=== PATIENT | female | born 1980 | race African-American/Black ===

== ENCOUNTER → 2016-09-19 | Outpatient (CLI) | payer OTHER ==
[~2016-09-19] MED LIST: AZEL30SP NAE; GLC/500 PO; PRED50TA PO; PSEU30TA20 PO
--- NOTE | 2016-09-19 20:11 | DIAGNOSTIC IMAGING REPORT ---
LUMBAR SPINE MRI HISTORY: Pain. Radiculopathy. LOWER BACK Pain, sciatica TECHNIQUE: Multiplanar multisequence MRI of the lumbar spine was performed without the use of contrast. COMPARISON: None. FINDINGS: For the purpose of the report the L5-S1 disc space will be located on axial image 27 of 30. Normal signal characteristics of the vertebral bodies as well as intervertebral discs. L1-L2: No significant central canal or neural foraminal narrowing. L2-L3: No significant central canal or neural foraminal narrowing. L3-L4: No significant central canal or neural foraminal narrowing. L4-L5: No significant central canal or neural foraminal narrowing. L5-S1: No significant central canal or neural foraminal narrowing. IMPRESSION: Normal study Electronically signed by: Donald Shah M.D. 09/19/2016 8:10 PM Dictated Date/Time: 09/19/2016 8:09 PM
== END | disposition home or self-care (01) ==
LOC: C.MRI 19:30
PROVIDERS: ATTEND Internal Medicine
DX: M54.5 Low back pain (principal)

== ENCOUNTER 2016-10-18 02:35 | Emergency (ER) | payer OTHER ==
[~2016-10-18] VITALS: Ht 167.6 cm; Wt 122.1 kg
[2016-10-18 02:38] VITALS: TEMP 36.5; Ht 167.6 cm; Wt 122.1 kg
[2016-10-18] MEDS ORDERED: PSEUDOEPHEDRINE HCL 30 MG TAB PO STA (03:00)
[2016-10-18] MEDS ORDERED: KETOROLAC TROMETHAMINE 60 MG/2 ML VIAL IM STA (03:00)
[2016-10-18] MEDS ORDERED: PSEU30TA20 PO (03:13)
--- NOTE | 2016-10-18 04:30 | EMERGENCY ROOM VISIT NOTE ---
History First contact with patient: 03:00 Chief Complaint: HEADACHE Stated Complaint: HEADACHE,NAUSEA,CONGESTION,NECK ACHE,CHILLS History of Present Illness The patient is a 36 year old female who presents to the Emergency Room with complaints of sinus pain and congestion with postnasal drip and runny nose and headache for the past few days. Patient had recurrent sinus infections. No previous CT imaging of her sinuses. She has not seen an ENT doctor. Patient denies chest pain, dyspnea, neck stiffness, sore throat, fever, chills, productive cough, lightheadedness, dizziness, vision problems. Review of Systems See HPI for pertinent positives & negatives. A total of 10 systems reviewed and were otherwise negative. Past Medical/Surgical History PCO S Social History Smoking Status: Never Smoker Drug Use: none Marital Status: Housing Status: lives with family Occupation Status: [employer] student Current/Historical Medications Scheduled Azelastine Hcl-Fluticasone Pro (Dymista), 1 SPRY FERMÍN BID Metformin Hcl (Glucophage), 500 MG PO BID Scheduled PRN Pseudoephedrine (Sudafed), 30 MG PO TID PRN for CONGESTION Allergies Coded Allergies: Clarithromycin (Verified Allergy, Unknown, unsure, 10/18/16) Codeine (Verified Allergy, Unknown, THROAT ITCHY, 10/18/16) Penicillins (Verified Allergy, Unknown, lip swelling, 10/18/16) [place] (Verified Allergy, Unknown, throat feels like it is closing, ) Physical Exam Vital Signs Date Time Temp Pulse Resp B/P Pulse Ox O2 Delivery O2 Flow Rate FiO2 10/18/16 02:38 36.5 82 18 161/98 99 Room Air Physical Exam VITALS: Vitals are noted on the nurse's note and reviewed by myself. Vital signs stable. GENERAL: Pleasant female, in no acute distress, nondiaphoretic, well-developed well-nourished. SKIN: The skin was without rashes, erythema, edema, or bruising. There is no tenting of the skin. Capillary reflex less than 2 seconds. HEAD: Normocephalic atraumatic. EARS: External auditory canals clear, tympanic membranes pearly john without erythema or effusion bilaterally. EYES: Pupils equal round and reactive to light and accommodation. Conjunctivae without injection, sclerae without icterus. Extraocular movements intact. NOSE: Patent, turbinates without inflammation or discharge. Bilateral frontal sinus tenderness. MOUTH: Mucous membranes moist. Pharynx without erythema or exudate. Uvula midline. Airway patent. Tongue does not deviate. NECK: Supple without nuchal rigidity. No lymphadenopathy. No thyromegaly. Cervical spine is nontender. No JVD. HEART: Regular rate and rhythm without murmurs gallops or rubs. LUNGS: Clear to auscultation bilaterally without wheezes, rales or rhonchi. No dullness to percussion. No retractions or accessory muscle use. ABDOMEN: Positive bowel sounds x 4. Normal tympanic percussion. Soft, nontender, without masses or organomegaly. Cabral sign negative. No guarding or rebound tenderness. MUSCULOSKELETAL: No muscle atrophy, erythema, or edema noted. NEURO: Patient was alert and oriented to person place and time. Normal sensation to light and sharp touch. No focal neurological deficits. Medical Decision & Procedures Medications Administered Medications (Trade) Dose Ordered Sig/Micah Route Start Time Stop Time Status Last Admin Dose Admin Prednisone (PredniSONE TAB) 60 mg NOW STAT PO 10/18/16 03:00 10/18/16 03:02 DC 10/18/16 03:18 60 MG Pseudoephedrine HCl (Sudafed Tab) 60 mg NOW STAT PO 10/18/16 03:00 10/18/16 03:02 DC 10/18/16 03:18 60 MG Ketorolac Tromethamine (Toradol Inj) 60 mg NOW STAT IM 10/18/16 03:00 10/18/16 03:02 DC 10/18/16 03:17 60 MG ED Course Prior records/ancillary studies reviewed. Triage Nursing notes reviewed. The patient's history was concerning for sinus pain and congestion with headache. Differential diagnosis: Etiologies such as URI, migraine headache, meningitis, sinusitis, CO exposure, ICH, SAH, infection, tumor, headache, sinus thrombosis, arterial dissection, as well as others were entertained. Physical examination findings: As above. Non-focal. ER treatment provided: Sudafed, Toradol On reassessment the patient felt better. Diagnostics interpreted by me: Imaging studies: CT of the sinuses was negative for sinusitis This appears to be consistent with upper respiratory infection. Patient was neurovascularly and neurologically intact. No signs of meningitis. No signs of airway compromise. She is well-appearing. She was advised to take medicines as directed and to follow-up ENT for her recurrent sinus problems or here in the ER sooner for severe pain, neck stiffness, confusion, fevers, worsening signs or symptoms or as needed. By the evaluation outlined above emergent etiologies such as meningitis, CO exposure, ICH, SAH, infection, temporal arteritis, tumor, sinus thrombosis, arterial dissection, as well as others were deemed relatively unlikely. The pt informed about the findings as listed above. All questions were answered and pleased with the treatment. Return instructions were outlined and the patient was discharged in stable condition. Outpatient prescription management: Prednisone Referral: The patient was referred back to their primary care physician and ENT for follow -up in 2 to 3 days for a recheck of the current condition. Case reviewed with my attending Medical Decision As above Impression Primary Impression: Upper respiratory infection Additional Impression: Sinus headache Departure Information Dispostion Home / Self-Care Condition GOOD Referrals Geovanna Cunningham M.D. (PCP) Patient Instructions My [facility] Additional Instructions Prednisone 50mg: Once daily until the prescription is finished. It is best to take this earlier in the day as some patients note occasional difficulty falling asleep when taken in the late evening. Acetaminophen(Tylenol) may be used for fever or pain. Use 1000mg every six hours as needed. Avoid using more than 3000mg in a 24 hour period. (AND/OR) Ibuprofen(Motrin, Advil) may be used for fever or pain. Use 600mg every six hours as needed. Take with food. Avoid using more than 2400mg in a 24 hour period. Do not use 2400mg per day for more than three consecutive days without physician direction. Prolonged inappropriate use can lead to stomach upset or ulcers. Afrin nasal spray: 2-3 sprays to each nostril twice daily as needed for congestion. Do not use for more than 3-4 days because it can lead to worsening rebound congestion. Pseudoephedrine(Sudaphed): 30-60mg every 6 hours as needed for nasal congestion. Do not take this with other stimulant products or supplements. Rest and drink plenty of fluids. Controlling your fever with Tylenol and Ibuprofen as above will make you feel better. Wash your hands after nose blowing, sneezing, or coughing. Most germs are spread through contact, therefore improper hygiene may result in your close contacts and loved ones becoming ill just like you. Continue current medications. Return to the ER for severe headache, neck stiffness, chest pain, difficulty breathing, fevers, vomiting, worsening of your condition, or as needed. Follow up with your primary physician or ENT this week for a recheck of your current condition. Problem Qualifiers Primary Impression: Upper respiratory infection URI type: unspecified viral URI Qualified Codes: J06.9 - Acute upper respiratory infection, unspecified; B97.89 - Other viral agents as the cause of diseases classified elsewhere
[2016-10-18] MEDS ORDERED: PRED50TA PO (04:32)
[2016-10-18 04:45] VITALS: BP 169/88; PULSE 87; O2SAT 97
--- NOTE | 2016-10-18 06:46 | DIAGNOSTIC IMAGING REPORT ---
SINUS CT CT DOSE: 595.07 mGy.cm HISTORY: sinus pain, recurrent sinus infx TECHNIQUE: Multiaxial CT images of the paranasal sinuses were performed and reformatted in the coronal plane without the use of contrast. COMPARISON: None. FINDINGS: The frontal sinuses, ethmoid air cells, sphenoid sinuses, and bilateral maxillary antra are clear. The mastoid air cells are clear. The bilateral ostiomeatal units are patent. The nasal septum is essentially midline. The orbits are unremarkable. A left-sided carole bullosa. IMPRESSION: The paranasal sinuses and mastoid air cells are clear. Electronically signed by: Reyes Arevalo M.D. 10/18/2016 6:44 AM Dictated Date/Time: 10/18/2016 6:42 AM
[2017-05-29] MEDS ORDERED: GLC/500 PO (03:10)
[2017-05-29] MEDS ORDERED: AZEL30SP NAE (03:11)
== END 2016-10-18 04:47 | disposition home or self-care (01) ==
LOC: C.EDB 02:36
DX: J06.9 Acute upper respiratory infection, unspecified (principal); B97.89 Other viral agents as the cause of diseases classified elsewhere; R51 Headache

== ENCOUNTER → 2017-02-10 | Outpatient (CLI) | payer OTHER ==
[~2017-02-10] MED LIST changes: +LEVO-366 PO
--- NOTE | 2017-02-10 10:15 | DIAGNOSTIC IMAGING REPORT ---
CT OF THE SINUSES WITHOUT CONTRAST FUSION PROTOCOL CLINICAL HISTORY: Chronic sinusitis. COMPARISON STUDY: Sinus CT October 18, 2016. TECHNIQUE: Axial images of the sinuses were obtained without IV contrast according to Fusion protocol. Coronal reformats were viewed. FINDINGS: Visualized portions of the intracranial contents are unremarkable on this unenhanced exam. Mastoid air cells are clear. There is no fluid within the middle ears. Ossicles are intact. Orbits are unremarkable. There is a carole bullosa of the left middle turbinate. There is mild S-shaped deviation of the nasal septum with mild spur formation. No bony destruction is present. There are no air-fluid levels. Note is made of minimal mucosal thickening of the sinuses which narrows several drainage pathways, including the right ostiomeatal complex. IMPRESSION: 1. Minimal mucosal thickening of the sinuses which narrows several drainage pathways, including the right ostiomeatal complex. No CT evidence of acute sinusitis. 2. Carole bullosa of the left middle turbinate. Electronically signed by: Walter Montoya M.D. 02/10/2017 10:14 AM Dictated Date/Time: 02/10/2017 10:08 AM
== END | disposition home or self-care (01) ==
LOC: C.CTS 09:49
PROVIDERS: ATTEND Physician Assistant
DX: J32.9 Chronic sinusitis, unspecified (principal); J34.89 Other specified disorders of nose and nasal sinuses

== ENCOUNTER 2017-04-14 21:23 | Emergency (ER) | payer OTHER ==
[~2017-04-14] VITALS: Ht 167.6 cm; Wt 127.7 kg
[~2017-04-14 21:23] MED LIST changes: -LEVO-366 PO; -PRED50TA PO
[2017-04-14 21:31] VITALS: TEMP 36.6; Ht 167.6 cm; Wt 127.7 kg
[2017-04-14 22:00] VITALS: BP 165/100; PULSE 70; O2SAT 96
[2017-04-14] MEDS ORDERED: PRED50TA PO (22:05)
[2017-04-14] MEDS ORDERED: LEVO-366 PO (22:05)
[2017-04-14] MEDS ORDERED: LEVOFLOXACIN 250 MG TAB PO ONE (22:15)
--- NOTE | 2017-04-15 06:08 | EMERGENCY ROOM VISIT NOTE ---
History First contact with patient: 21:52 Chief Complaint: HEADACHE Stated Complaint: SINUS MARTIN,CONGESTION,NASAL PAIN,NECK PAIN History of Present Illness The patient is a 37 year old female who presents to the Emergency Room with complaints of sinus headache symptoms for the past 7 or 8 days. The patient states that she has a history of chronic allergies, and feels her symptoms may be related to that. She has been taking Benadryl without significant improvement of symptoms. She states that she recently flew home from [place], and this did exacerbate her symptoms. She primarily complains of pain in the left frontal and left maxillary sinus distribution. She does not have significant ear pain or sore throat symptoms. She does have some sinus drainage and sore throat symptoms. No cough or wheezing. She has not had a fever. She rates her discomfort a 5/10. Review of Systems More than 10 systems were reviewed and otherwise negative with the exception of history of present illness. Past Medical/Surgical History History of chronic allergies Family History No pertinent family history Social History Smoking Status: Never Smoker Drug Use: none Marital Status: Housing Status: lives with family Occupation Status: [employer] student Current/Historical Medications Scheduled Azelastine Hcl-Fluticasone Pro (Dymista), 1 SPRY FERMÍN BID Levofloxacin (Levaquin), 500 MG PO DAILY Metformin Hcl (Glucophage), 500 MG PO BID Prednisone (Prednisone), 50 MG PO DAILY Scheduled PRN Pseudoephedrine (Sudafed), 30 MG PO TID PRN for CONGESTION Physical Exam Vital Signs Date Time Temp Pulse Resp B/P (MAP) Pulse Ox O2 Delivery O2 Flow Rate FiO2 04/14/17 22:00 70 17 165/100 96 04/14/17 21:31 36.6 79 18 150/96 99 Room Air Physical Exam VITALS: Vitals are noted on the nurse's note and reviewed by myself. Vital signs stable. GENERAL: Well-developed, well-nourished, black female, who is in no acute distress and resting comfortably. Patient is cooperative with the examination. HEAD: Positive percussive tenderness over the left frontal and left maxillary sinus EARS: External ear normal. External auditory canals clear, tympanic membranes pearly john without erythema or effusion bilaterally. EYES: Pupils equal round and reactive to light and accommodation. Conjunctivae without injection, sclerae without icterus. Extraocular movements intact. NOSE: Patent, turbinates without inflammation or discharge. MOUTH: Mucous membranes moist. Tonsils are not enlarged. Pharynx with mild postnasal drip. Uvula midline. Airway patent. NECK: Supple without nuchal rigidity. No lymphadenopathy. No thyromegaly. Cervical spine is nontender. HEART: Regular rate and rhythm without murmurs gallops or rubs. LUNGS: Clear to auscultation bilaterally without wheezes, rales or rhonchi. No retractions or accessory muscle use. Medical Decision & Procedures Medications Administered Medications (Trade) Dose Ordered Sig/Micah Route Start Time Stop Time Status Last Admin Dose Admin Levofloxacin (Levaquin Tab) 500 mg NOW ONCE PO 04/14/17 22:15 04/14/17 22:16 DC 04/14/17 22:17 500 MG ED Course Physical exam and history were performed. Nursing notes, EMR, and Medication List were personally reviewed. Patient appears to have sinus congestion and sinus headache symptoms for the past 7 or 8 days. On examination she does have percussive tenderness and a history that would be consistent with acute sinusitis. The patient does not appear toxic. She does have allergies to macrolides and penicillin. I will give her a course of Levaquin and prednisone. I did discuss the importance of avoiding unnecessary physical activity while on these medications. The patient is to follow with her primary care physician in the next few days for recheck. She was otherwise invited back to the ER with any new, worsening, or concerning symptoms. The chart was completed utilizing [employer] Voice Recognition Software. Grammatical errors, random word insertions, pronoun errors, and incomplete sentences are an occasional consequence of this system due to software limitations, ambient noise, and hardware issues. Any formal questions or concerns about the content, text, or information contained within the body of this dictation should be directly addressed to the provider for clarification. . Medical Decision Differential diagnosis: Etiologies such as viral syndrome, otitis, pharyngitis, pneumonia, influenza, meningitis, urinary tract infection, sepsis, bacteremia, as well as others were entertained. Blood Pressure Screening Patient's blood pressure: Normal blood pressure Impression Primary Impression: Sinusitis Departure Information Dispostion Home / Self-Care Condition GOOD Prescriptions Prednisone (Prednisone) 50 Mg Tab 50 MG PO DAILY for 3 Days, #3 TAB Prov: Theodore Banks PA-C 04/14/17 Levofloxacin (Levaquin) 500 Mg Tab 500 MG PO DAILY for 6 Days, #6 TAB Prov: Theodore Banks PA-C 04/14/17 Forms HOME CARE DOCUMENTATION FORM, IMPORTANT VISIT INFORMATION Patient Instructions My [facility] Additional Instructions You were seen and evaluated today on an emergency basis only. This is not a substitute for, or an effort to provide, complete comprehensive medical care. It is not possible to recognize and treat all injuries or illnesses in a single emergency department visit. For this reason it is recommended that you followup with your primary care physician with any ongoing or persistent symptoms. Take Levaquin once daily as prescribed. Take prednisone for the next 3 days. Do not engage in unnecessary physical activity while on these medications as it can cause tendon or ligament injury. You are welcome to return to the emergency department anytime with new, worsening, or concerning symptoms.
== END 2017-04-14 22:00 | disposition home or self-care (01) ==
LOC: C.EDB 21:24 → C.EDD 22:00
DX: J32.9 Chronic sinusitis, unspecified (principal)

== ENCOUNTER 2017-05-29 15:59 | Emergency (ER) | payer OTHER ==
[~2017-05-29] VITALS: Ht 167.6 cm; Wt 126.8 kg
[2017-05-29 16:09] VITALS: Ht 167.6 cm; Wt 126.8 kg
[2017-05-29] MEDS ORDERED: FLUT0.15 NAE (16:26)
[2017-05-29] MEDS ORDERED: MULT-513 PO (16:26)
[2017-05-29] MEDS ORDERED: DOXYCYCLINE HYCLATE 100 MG CAP PO STA (17:29)
[2017-05-29] MEDS ORDERED: DOXY100C PO (17:40)
--- NOTE | 2017-05-29 17:42 | EMERGENCY ROOM VISIT NOTE ---
History First contact with patient: 16:44 Chief Complaint: EAR PAIN Stated Complaint: EAR PAIN, NECK PAIN, MARTIN, SENSITIVE TOOTH, CONGEST History of Present Illness The patient is a 37 year old female who presents to the Emergency Room with complaints of dark green nasal discharge, left ear pain and a scratchy throat that has been going on for approximately 2 weeks. The patient has tried a net deep pot at home. She is also tried ibuprofen and Sudafed with minimal relief. She did feel chills yesterday. She did not take her temperature at home. She denies any sick contacts. She is up-to-date on her vaccines. She denies any difficulty breathing. No productive cough. Review of Systems 6 system review negative. Please see pertinent positives in the history of present illness section. Past Medical/Surgical History Otherwise healthy History of tonsillectomy Family History Diabetes, hypertension Social History Smoking Status: Never Smoker Drug Use: none Marital Status: Housing Status: lives with family Occupation Status: [employer] student Current/Historical Medications Scheduled Azelastine Hcl-Fluticasone Pro (Dymista), 1 SPRY FERMÍN BID Doxycycline Hyclate (Vibramycin), 100 MG PO BID Fluticasone Propionate (Nasal) (Flonase Allergy Relief), 1 SPRAY FERMÍN DAILY Metformin Hcl (Glucophage), 500 MG PO BID Multivitamins/Minerals (Mvi With Minerals), 1 TAB PO [id number] Physical Exam Vital Signs Date Time Temp Pulse Resp B/P (MAP) Pulse Ox O2 Delivery O2 Flow Rate FiO2 05/29/17 17:50 36.4 71 18 149/101 100 Room Air 05/29/17 16:09 36.5 72 18 154/89 97 Room Air Physical Exam VITALS: Vitals are noted on the nurse's note and reviewed by myself. Vital signs stable. GENERAL: 37-year-old female, in no acute distress, nondiaphoretic, well- developed well-nourished. SKIN: The skin was without rashes, erythema, edema, or bruising. HEAD: Normocephalic atraumatic. EARS: External auditory canals clear, left tympanic membrane is erythematous. There is a small effusion noted. Right tympanic membrane is also erythematous to lesser extent with a small effusion. EYES: Conjunctivae without injection, sclerae without icterus. Extraocular movements intact. NOSE: Patent, turbinates without inflammation or discharge. Slurry sinus tenderness noted bilaterally. MOUTH: Mucous membranes moist. Tonsils are not enlarged. Pharynx without erythema or exudate. Uvula midline. Airway patent. Tongue does not deviate. NECK: Supple without nuchal rigidity. Lymphadenopathy in the anterior cervical chain bilaterally. Cervical spine is nontender. No JVD. HEART: Regular rate and rhythm without murmurs gallops or rubs. LUNGS: Clear to auscultation bilaterally without wheezes, rales or rhonchi. No accessory muscle use. MUSCULOSKELETAL: Strength 5/5 throughout. NEURO: Patient was alert and oriented to person place and time. Normal sensation to touch. No focal neurological deficits. Medical Decision & Procedures Medications Administered Medications (Trade) Dose Ordered Sig/Micah Route Start Time Stop Time Status Last Admin Dose Admin Doxycycline Hyclate (Vibramycin Cap) 100 mg NOW STAT PO 05/29/17 17:29 05/29/17 17:31 DC 05/29/17 17:38 100 MG ED Course The patient was seen and examined She was given 1 dose of doxycycline Discharge instructions were reviewed, and she was discharged in good condition Medical Decision Differential diagnosis: Otitis media, otitis externa, sinusitis, Bronchitis, pneumonia, strep pharyngitis, viral pharyngitis, influenza This patient is a 37-year-old female presents emergency department complaining of significant left ear pain and green purulent discharge from her nose. This has been ongoing for 2 weeks. She does describe chills. She did not take her temperature at home. On exam, her tympanic membrane is erythematous with a small effusion. She did have sinus tenderness. Given the length of her symptoms and feverish symptoms, I opted to treat her with a ten-day course of antibiotics for sinusitis. She is allergic to penicillin. She was given a ten- day course of doxycycline. She was advised to follow-up with [facility] to ensure that her symptoms are resolving. She also agrees to return to the emergency department with any new or worsening symptoms. This chart was completed in part utilizing [employer] Voice Recognition software. Attempts were made to minimize the grammatical errors, random word insertions, pronoun errors and incomplete sentences. Any formal questions or concerns about the content, text or information contained within the body of this dictation should be directly addressed to the provider for clarification. Blood Pressure Screening Patient's blood pressure: Elevated blood pressure Blood pressure disposition: Did not require urgent referral Impression Primary Impression: Sinusitis Departure Information Dispostion Home / Self-Care Condition GOOD Prescriptions Doxycycline Hyclate (VIBRAMYCIN) 100 Mg Cap 100 MG PO BID for 10 Days, CAP Prov: Layla Lopez PA-C 05/29/17 Referrals [facility] (PCP) Patient Instructions My [facility] Additional Instructions Please take entire course of antibiotics. Take this antibiotic with food. I also recommend a probiotic such as Culturelle or eating Activia a yogurt daily while on this medication. Please continue the Juanita pot twice daily as needed for congestion Continue Sudafed. Please take as prescribed. Alternate Tylenol and ibuprofen for pain or fever Ibuprofen 00 mg and/or Tylenol 1000 mg every 8 hours. You may also alternate these medications for more effective pain relief: Ibuprofen --4 HRS--> Tylenol --4 HRS--> ibuprofen --4 HRS--> Tylenol .... Please follow-up with [facility] next week for a recheck. Please do not hesitate to return to the emergency department with any new or concerning symptoms
[2017-05-29 17:50] VITALS: BP 149/101; PULSE 71; TEMP 36.4; O2SAT 100
== END 2017-05-29 18:00 | disposition home or self-care (01) ==
LOC: C.EDB 16:00 → C.EDD 18:00
DX: J32.9 Chronic sinusitis, unspecified (principal); Z79.84 Long term (current) use of oral hypoglycemic drugs; Z83.3 Family history of diabetes mellitus; Z82.49 Family history of ischemic heart disease and other diseases of the circulatory system

== ENCOUNTER 2017-06-23 22:46 | Emergency (ER) | payer OTHER ==
[~2017-06-23] VITALS: Ht 167.6 cm; Wt 127.0 kg
[~2017-06-23 22:46] MED LIST changes: +FLUT0.15 NAE; +MULT-513 PO; -PSEU30TA20 PO
[2017-06-23 22:51] VITALS: TEMP 36.7; Ht 167.6 cm; Wt 127.0 kg
--- NOTE | 2017-06-23 23:03 | EMERGENCY ROOM VISIT NOTE ---
History Report prepared by Brenda: Israel Perez Under the Supervision of: Dr. Piedad Serrano D.O. First contact with patient: 22:58 Chief Complaint: HEADACHE Stated Complaint: MARTIN, CONGESTION, NECKACHE History of Present Illness The patient is a 37 year old female who presents to the Emergency Room with complaints of a constant, severe, dull headache beginning over a week ago. The patient states she has a history of severe sinus infections. She reports it feels like her previous episodes but not as severe. The patient notes she knows her symptoms are from allergies. She states she cannot lie down or sleep because it worsens her discomfort. The patient reports she laid down last night and had to open a window because she was warm and sweating. She notes she tried a cold rag, but it did not help her cool down. The patient states she tried using a Neti Pot, and it helped loosen her congestion to where she was spitting out green sputum. She reports she only has green sputum when she is infected, and this time it was not draining from her nose. She states she fell asleep sitting up because she is very tired. The patient notes she also tried Motrin and Sudafed. She states the Sudafed helped her congestion as well as the Neti Pot, but it raised her blood pressure. The patient reports she started allergy shots a month ago, and she will not start seeing results until a year from now. She notes she was given prednisone before, and it typically helps but keeps her awake. The patient denies leg cramping and taking Benadryl tonight. She reports a family history of HTN. Source of History: patient Onset: over a week ago Position: head Symptom Intensity: severe Quality: ache, dull Timing: constant Modifying Factors (Worsening): other (lying down and sleeping) Modifying Factors (Relieving): other (Sudafed, Neti Pot) Note: Associated symptoms: sweating, warm, congestion, high blood pressure, tired Denies: leg cramping Review of Systems See HPI for pertinent positives & negatives. A total of 10 systems reviewed and were otherwise negative. Past Medical & Surgical Medical Problems: (1) Eczema Family History Diabetes mellitus Hypertension Seizures Social History Smoking Status: Never Smoker Smokeless Tobacco Use: No Drug Use: none Marital Status: Housing Status: lives with family Occupation Status: [employer] student Current/Historical Medications Scheduled Azelastine Hcl-Fluticasone Pro (Dymista), 1 SPRY FERMÍN BID Levofloxacin (Levaquin), 1 TAB PO DAILY Metformin Hcl (Glucophage), 500 MG PO BID Multivitamin (Multivitamin), 1 TAB PO DAILY Prednisone (Prednisone), 50 MG PO DAILY Allergies Coded Allergies: Clarithromycin (Verified Allergy, Unknown, unsure, 06/23/17) Codeine (Verified Allergy, Unknown, THROAT ITCHY, 06/23/17) Penicillins (Verified Allergy, Unknown, lip swelling, 06/23/17) [place] (Verified Allergy, Unknown, throat feels like it is closing, ) Physical Exam Vital Signs Date Time Temp Pulse Resp B/P (MAP) Pulse Ox O2 Delivery O2 Flow Rate FiO2 06/24/17 00:15 70 20 154/89 96 06/23/17 22:51 36.7 72 20 151/96 96 Room Air Physical Exam HEENT: Head - normocephalic and atraumatic Pupils are equal, round, and reactive to light. Extraocular eye muscles are intact, and sclera are anicteric. Nose - moist nasal mucosa without discharge. Mouth - moist buccal mucosa. Oropharynx is nonerythematous and there is no tonsillar exudate or edema noted. Ear - Normal TMs bilaterally. Pain with palpation over the frontal and maxillary sinuses. Neck: Supple; no JVD, nuchal rigidity, cervical lymphadenopathy. Heart: Regular rate and rhythm. There is a normal S1 and S2 with no murmurs, clicks, or gallops appreciated. Lungs: Clear to auscultation bilaterally with no wheezes, rales, or rhonchi. Abdomen: Soft, completely nontender, nondistended, with good bowel sounds. There are no palpable pulsatile masses or hepatosplenomegaly. There is no guarding, rigidity, or rebound noted. Extremities: No evidence of cyanosis, clubbing, or edema. There are easily palpable peripheral pulses. Skin: warm and dry with good turgor and no rashes. Slightly diaphoretic. Medical Decision & Procedures Medications Administered Medications (Trade) Dose Ordered Sig/Micah Route Start Time Stop Time Status Last Admin Dose Admin Ketorolac Tromethamine (Toradol Inj) 60 mg NOW STAT IM 06/23/17 23:15 06/23/17 23:16 DC 06/23/17 23:37 60 MG Levofloxacin (Levaquin Tab) 500 mg ONE ONCE PO 06/23/17 23:45 06/23/17 23:55 DC 06/23/17 23:59 500 MG Procedure 2315: Ordered Ketorolac Tromethamine 60mg IM 2330: Ordered Doxycycline 100mg PO - Patient refused 2345: Ordered Levofloxacin 500mg PO ED Course 2306: The patient was evaluated in room B10. A complete history and physical examination were performed. Nursing notes and previous electronic medical records were reviewed. 2315: Ordered Ketorolac 60mg IM 2330: Ordered Doxycycline 100mg PO - Patient refused 2340: The nursing staff informed me the patient refused the Doxycycline because it makes her vomit. 2345: Ordered Levofloxacin 500mg PO 0019: Upon reevaluation, the patient has significant relief of her head pain. I discussed findings and results with her. She verbalized agreement of the treatment plan. The patient was discharged home. Medical Decision The patient is a 37 year old female who presents to the ED with a constant, severe, dull, headache beginning over a week ago. Differential diagnosis includes sinusitis, exacerbation of seasonal allergies, tension headache, migraine, HTN urgency. The patient explains that her blood pressures typically normal except when she takes Sudafed. She had moderate relief of the headache from Toradol. Her description of symptoms are concerning for a bacterial sinusitis. She has allergies to different antibiotics. She has refused doxycycline secondary to the associated vomiting and nausea. I will use Levaquin daily for the next 10 days along with some prednisone. The patient is currently under the care of Dr. Ward and will continue with allergy shots. I explained to the patient that she may require follow-up with ENT. Medication Reconcilliation Current Medication List: was personally reviewed by me Blood Pressure Screening Patient's blood pressure: Elevated blood pressure Blood pressure disposition: Elevated BP felt to be situational Impression Primary Impression: Frontal headache Additional Impression: Sinusitis Scribe Attestation The scribe's documentation has been prepared under my direction and personally reviewed by me in its entirety. I confirm that the note above accurately reflects all work, treatment, procedures, and medical decision making performed by me. Departure Information Dispostion Home / Self-Care Prescriptions Levofloxacin (LEVAQUIN) 500 Mg Tab 1 TAB PO DAILY for 10 Days, #10 TAB Prov: Piedad Serrano D.O. 06/24/17 Prednisone (PREDNISONE) 50 Mg Tab 50 MG PO DAILY, #5 TAB Prov: Piedad Serrano D.O. 06/24/[address] [facility] (PCP) Forms HOME CARE DOCUMENTATION FORM, IMPORTANT VISIT INFORMATION Patient Instructions ED Sinusitis Abx Tx, [facility] Additional Instructions Rest. Prednisone daily for 5 days Levaquin daily for 10 days Follow up with Dr. Ward. You should have your BP rechecked at PCP by end of week Problem Qualifiers Additional Impression: Sinusitis Sinusitis location: frontal Chronicity: acute Recurrence: recurrent Qualified Codes: J01.11 - Acute recurrent frontal sinusitis
[2017-06-23] MEDS ORDERED: KETOROLAC TROMETHAMINE 60 MG/2 ML VIAL IM STA (23:15)
[2017-06-23] MEDS ORDERED: DOXYCYCLINE HYCLATE 100 MG CAP PO ONE (23:30)
[2017-06-23] MEDS ORDERED: MULT-506 PO (23:41)
[2017-06-23] MEDS ORDERED: LEVOFLOXACIN 250 MG TAB PO ONE (23:45)
[2017-06-23] MEDS ORDERED: LEVOFLOXACIN 750 MG TAB PO ONE (23:45)
[2017-06-24] MEDS ORDERED: PRED50TA PO (00:11)
[2017-06-24] MEDS ORDERED: LEVO1TAB34 PO (00:11)
[2017-06-24 00:15] VITALS: BP 154/89; PULSE 70; O2SAT 96
== END 2017-06-24 00:18 | disposition home or self-care (01) ==
LOC: C.EDB 22:47
DX: J01.11 Acute recurrent frontal sinusitis (principal); J30.2 Other seasonal allergic rhinitis; R03.0 Elevated blood-pressure reading, without diagnosis of hypertension; Z88.1 Allergy status to other antibiotic agents; Z82.49 Family history of ischemic heart disease and other diseases of the circulatory system; Z83.3 Family history of diabetes mellitus; Z82.0 Family history of epilepsy and other diseases of the nervous system

== ENCOUNTER → 2017-09-04 | Outpatient (CLI) | payer OTHER ==
[~2017-09-04] MED LIST changes: -FLUT0.15 NAE; +MULT-506 PO; -MULT-513 PO
== END | disposition home or self-care (01) ==
LOC: C.LABSPEC 17:01
PROVIDERS: ATTEND Physician Assistant
DX: K13.79 Other lesions of oral mucosa (principal)

== ENCOUNTER → 2017-09-25 | Outpatient (CLI) | payer OTHER ==
[~2017-09-25] MED LIST changes: +AZIT250T PO; +IBUP-1451 PO
== END | disposition home or self-care (01) ==
LOC: C.LAB1850 10:40
PROVIDERS: ATTEND Internal Medicine Pulmonary Disease
DX: J30.9 Allergic rhinitis, unspecified (principal); J34.3 Hypertrophy of nasal turbinates; T78.1XXA Other adverse food reactions, not elsewhere classified, initial encounter; X58.XXXA Exposure to other specified factors, initial encounter

== ENCOUNTER 2017-10-02 15:26 | Emergency (ER) | payer OTHER ==
[~2017-10-02] VITALS: Ht 167.6 cm; Wt 131.4 kg
[~2017-10-02 15:26] MED LIST changes: -AZIT250T PO; -IBUP-1451 PO
[2017-10-02 15:31] VITALS: BP 164/108; PULSE 78; TEMP 36.7; O2SAT 99; Ht 167.6 cm; Wt 131.4 kg
[2017-10-02] MEDS ORDERED: AZIT250T PO ×2 (17:12→17:23)
[2017-10-02] MEDS ORDERED: IBUP-1451 PO ×2 (17:12→17:23)
--- NOTE | 2017-10-02 17:14 | EMERGENCY ROOM VISIT NOTE ---
History Report prepared by Brenda: Marleen Lindsey Under the Supervision of: Dr. Luis Alberto Pritchett M.D. First contact with patient: 16:51 Chief Complaint: HEADACHE Stated Complaint: SINUS HEADACHE, CONGESTION, SORE NECK, TIRED History of Present Illness The patient is a 37 year old female who presents to the Emergency Room with complaints of persistent headache starting 4 days ago. She presents to the ED because [facility] did not have any available appointments today. The patient has a history of sinus headaches and thought that this might be a sinus headache. She has been using her Neti pot and taking her allergy medications to no relief. She last had a sinus headache last month. She currently rates her discomfort as a 6/10 in severity. She has been taking ibuprofen. She last took 3 ibuprofen around 1100 this morning. She missed work 3 days ago with a fever. When she returned to work the next day, she found that she would get nauseous and lightheaded with moving her head up. Her neck has felt sore and stiff. She reports eye pain. She has not had a fever since 3 days ago. She denies any back pain, abdominal pain, or dizziness. Source of History: patient Onset: 4 days ago Position: head Symptom Intensity: 6/10 Quality: ache Timing: other (persistent) Modifying Factors (Relieving): ibuprofen Associated Symptoms: + fevers (resolved), + neck pain, No abdominal pain, No back pain Note: Pt reports eye pain. Review of Systems See HPI for pertinent positives and negatives. A total of ten systems were reviewed and were otherwise negative. Past Medical & Surgical Medical Problems: (1) Eczema Family History Diabetes mellitus Hypertension Seizures Social History Smoking Status: Never Smoker Drug Use: none Marital Status: Housing Status: lives with family Occupation Status: [employer] student Current/Historical Medications Scheduled Azelastine Hcl-Fluticasone Pro (Dymista), 1 SPRY FERMÍN BID Azithromycin (Zithromax), 0 PO DAILY Metformin Hcl (Glucophage), 500 MG PO BID Multivitamin (Multivitamin), 1 TAB PO DAILY Scheduled PRN Ibuprofen Tab (Motrin), 800 MG PO Q8H PRN for Pain Allergies Coded Allergies: Clarithromycin (Verified Allergy, Unknown, unsure, 06/23/17) Codeine (Verified Allergy, Unknown, THROAT ITCHY, 06/23/17) Penicillins (Verified Allergy, Unknown, lip swelling, 06/23/17) [place] (Verified Allergy, Unknown, throat feels like it is closing, ) Physical Exam Vital Signs Date Time Temp Pulse Resp B/P (MAP) Pulse Ox O2 Delivery O2 Flow Rate FiO2 10/02/17 15:31 36.7 78 18 164/108 99 Room Air Physical Exam GENERAL: Awake, alert, relatively well-appearing, in no distress HENT: Normocephalic, atraumatic. Boggy nasal turbinates. Mild maxillary and frontal sinus tenderness. EYES: Normal conjunctiva. Sclera non-icteric. NECK: Supple. No nuchal rigidity. FROM. No JVD. RESPIRATORY: Clear to auscultation. CARDIAC: Regular rate, normal rhythm. Extremities warm and well perfused. Pulses equal. ABDOMEN: Soft, non-distended. No tenderness to palpation. No rebound or guarding. No masses. RECTAL: Deferred. MUSCULOSKELETAL: Chest examination reveals no tenderness. The back is symmetrical on inspection without obvious abnormality. There is no CVA tenderness to palpation. No joint edema. LOWER EXTREMITIES: Calves are equal size bilaterally and non-tender. No edema. No discoloration. NEURO: Normal sensorium. No sensory or motor deficits noted. SKIN: No rash or jaundice noted. Medical Decision & Procedures ED Course 1653: The patient was evaluated in room B4B. A complete history and physical exam was performed. I discussed results and discharge instructions: She verbalized understanding and agreement. The patient is ready for discharge. Medical Decision I reviewed the patient's past medical history, medications, and the nursing notes as described above. Differential diagnosis: Etiologies such as migraine headache, meningitis, sinusitis, CO exposure, ICH, SAH, infection, tumor, headache, sinus thrombosis, arterial dissection, as well as others were entertained. The patient is a 37-year-old woman with a past medical history of recurrent sinus infections and associated sinus headaches who presents emergency department with sinus congestion evolving headache per hpi. On arrival the patient is relatively well-appearing in no acute distress, afebrile stable vital signs. She is neurologically intact including normal cerebellar function with [id number], alternating palms, [id number]. Her gait is steady. Patient has mild tenderness to bilateral maxillary and frontal sinuses consistent with sinusitis and sinus headache. Patient has mild discomfort in her paraspinal neck muscles but otherwise is supple with full range of motion and no meningismus. Given that the patient is relatively well-appearing I discussed options with her for IV placement lab draw and IV fluid hydration versus oral OTC medications and PCP follow-up. The patient preferred the latter. Given the majority of sinus infection or viral I did recommend the patient that we defer antibiotics at this time. However, the patient reports that her symptoms typically resolve with antibiotics. Thus we agreed that I would write her a prescription for azithromycin which she could fill if her symptoms do not improve in the next couple days after attempting treatment with regular APAP/ibuprofen, saline nasal spray and Mucinex, and dedicated oral hydration. Medication Reconcilliation Current Medication List: was personally reviewed by me Blood Pressure Screening Patient's blood pressure: Elevated blood pressure Blood pressure disposition: Elevated BP felt to be situational Impression Primary Impression: Sinus headache Scribe Attestation The scribe's documentation has been prepared under my direction and personally reviewed by me in its entirety. I confirm that the note above accurately reflects all work, treatment, procedures, and medical decision making performed by me. Departure Information Dispostion Home / Self-Care Prescriptions Azithromycin (Zithromax) 250 Mg Tab 0 PO DAILY, #5 TAB Take two tablets on day 1 and then 1 tablet daily until finished. Prov: Luis Alberto Pritchett M.D. 10/02/17 Ibuprofen Tab (MOTRIN) 800 Mg Tab 800 MG PO Q8H Y for Pain for 7 Days, #21 TAB Prov: Luis Alberto Pritchett M.D. 10/02/17 Referrals Geovanna Cunningham M.D. (PCP) Patient Instructions ED Headache Sinus, ED Headache Tension, [facility] Additional Instructions Please follow up with S next week for re-evaluation. Your symptoms are most likely due to a sinus headache/tension headache. Otherwise, your exam did not show signs of an emergent condition at this time. Acetaminophen or ibuprofen for pain and fevers as needed. Saline nasal spray and [id number] Mucinex to help thin and clear mucus. Drink plenty of fluids to ensure hydration. You were given a prescription for azithromycin that you may fill if your symptoms do not improve with the current recommended treatment over the next couple of days. Return to the emergency department for worsening symptoms as described in the accompanying instructions.
== END 2017-10-02 17:23 | disposition home or self-care (01) ==
LOC: C.EDB 15:28
DX: R51 Headache (principal); Z83.3 Family history of diabetes mellitus; Z82.49 Family history of ischemic heart disease and other diseases of the circulatory system; Z82.0 Family history of epilepsy and other diseases of the nervous system; Z79.84 Long term (current) use of oral hypoglycemic drugs; Z79.899 Other long term (current) drug therapy; Z88.1 Allergy status to other antibiotic agents; Z88.5 Allergy status to narcotic agent; Z88.0 Allergy status to penicillin; Z91.018 Allergy to other foods